=== PATIENT | female | born 1975 | race African-American/Black ===

== ENCOUNTER 2016-09-30 09:56 | Emergency (ER) | payer OTHER ==
[~2016-09-30] VITALS: Ht 160 cm; Wt 54.0 kg
[2016-09-30 10:51] LABS: PLATELET COUNT 266 K/uL (152-353)
[2016-09-30 10:57] LABS: POTASSIUM 3.7 mmol/L (3.6-5.2); SODIUM 136 mmol/L (136-145)
[2016-09-30 11:42] VITALS: BP 131/66; TEMP 98
== END 2016-09-30 11:42 | disposition home or self-care (01) ==
LOC: ED 09:56
PROVIDERS: Emergency Medicine
DX: K29.00 Acute gastritis without bleeding (principal)
CPT/HCPCS: 36415; 80053; 81000; 81025; 82150; 83690; 85027; 99283